=== PATIENT | male | born 1995 | race Caucasian/White ===

== ENCOUNTER 2022-04-14 18:43 | Inpatient (IN) | payer MEDICAID, SELFPAY ==
[2022-04-14 19:36] VITALS: BMI 26.5
[2022-04-14 19:47] VITALS: BMI 25.8
[2022-04-14 20:26] VITALS: BP 140/76; PULSE 86; RESP 18; TEMP 37.1; O2SAT 93
[2022-04-14 21:29] VITALS: BP 136/74; PULSE 84; RESP 18; TEMP 37; O2SAT 92
[2022-04-14] MEDS: hyDROXYzine 25 mg Capsule 50 MG PO (21:51)
[2022-04-14] MEDS: nicotine 4 mg lozenge MUCOUS MEM (21:52)
--- NOTE | 2022-04-15 09:58 | PC.NURSE ---
Pt up for meal then returned to bed. Alert, appears oriented. Rated anxiety 1-2; depression 3-4. Denied pain, anger, suicidal/homicidal thoughts and hallucinations. Reported his sleep and appetite were good. Verbalized no goal for today.
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
[2022-04-15 14:00] VITALS: BP 130/74; PULSE 86; RESP 18; TEMP 36.6; O2SAT 95
[2022-04-15] MEDS: nicotine 4 mg lozenge MUCOUS MEM ×2 (18:21→22:02)
[2022-04-15] MEDS: fluoxetine 20 mg Capsule PO (20:35)
[2022-04-15] MEDS: ziprasidone hcl 40 mg Capsule PO (20:36)
[2022-04-15 22:00] VITALS: BP 107/74; PULSE 100; RESP 17; TEMP 36.6; O2SAT 97
[2022-04-16] MEDS: hyDROXYzine 25 mg Capsule 50 MG PO ×2 (02:29→21:22)
[2022-04-16] MEDS: nicotine 4 mg lozenge MUCOUS MEM (09:23)
[2022-04-16] MEDS: fluoxetine 20 mg Capsule PO (09:23)
--- NOTE | 2022-04-16 10:31 | W.PM.NPUPNS ---
Subjective NPU Subjective: Patient presented today reporting that initiating of medications has been helpful. He reports however that the Prozac tends to make him tired and we discussed the risks, benefits and alternatives of switching it to bedtime dosing and he understood and agreed to proceed as is documented in this note. We discussed that that would start tomorrow. Otherwise he reports he is glad that he came and feels this is the best route to him getting sober and back on track from his mental health standpoint. Mental Status Exam MSE Comments: This is a well-nourished well-developed white male in scrubs with adequate grooming and limited eye contact. Except for resolving mild psychomotor agitation. Cooperative with exam in mild distress. Speech was slightly increased rate and normal volume. Mood described as a little better, affect is congruent. Thought process, organized. Thought content: patient denies suicidal or homicidal ideation, reports paranoia and guardedness as a possible grandiosity noted and denies any auditory or visual hallucinations. Attention and concentration are intact and memory appeared mostly reliable but none were formally tested. He is alert and oriented times three. Insight and judgment are limited, but improving. Impulse control is impaired. Vitals/I&O/Wt Last Vital Signs Temp 97.9 F 04/15/22 22:00 Pulse 100 04/15/22 22:00 Resp 17 04/15/22 22:00 BP 107/74 04/15/22 22:00 Pulse Ox 97 04/15/22 22:00 O2 Del Method 04/15/22 22:00 Weight last 48 hrs Weight 81.42 kg Weight 81.647 kg Weight 83.915 kg A&P Assessment and plan (1) Bipolar I disorder with mixed features: (2) Cannabis use disorder: Plan This is a 27 year old man with a history of bipolar disorder, marijuana and other illicit drug use and genetic loading for mental health and addiction issues who presents reporting some success on previous medications and an openness to restart those medications. 1. Continue current medications. Started Prozac 20 mg poq daily to bedtime. Started Geodon 40 mg poq pm. 2. Encourage individual, group and milieu therapy 3. Continue q-15 minute check for safety 4. Recommend sober living treatment at the highest level of care to which the patient is willing to commit. Involuntary Hold Information 96 Hour Hold: 96 Hour Involuntary Admission: Yes 96 Hour Hold Ending Date: 04/20/23 96 Hour Hold Ending Time: 18:20 Attestations NPU Medical Necessity Statement*: Inpatient hospitalization is medically necessary and the clinically appropriate intervention at this time. We will monitor medications and make changes as indicated. Likely length of stay is 2-4 days. Coding Level of Care Code Acute Code for Chg Fwd Diagnoses Bipolar I disorder with mixed features F31.9 Cannabis use disorder F12.90
[2022-04-16 14:00] VITALS: BP 104/64; PULSE 65; RESP 18; TEMP 36.6; O2SAT 98
[2022-04-16] MEDS: ziprasidone hcl 40 mg Capsule PO (17:13)
--- NOTE | 2022-04-16 17:17 | PC.NURSE ---
Pt is concerned about taking his Geodon medication to early in the evening, wants to speak to the doctor about medication scheduling times.
[2022-04-16 20:17] VITALS: RESP 16
[2022-04-16] MEDS: OLANZapine 5 mg ODT PO (21:22)
--- NOTE | 2022-04-17 07:40 | PC.NURSE ---
pt came to nurses station stating he did not want to take geodon any more because he is not responsible enough to take any medication two time a day. I offered to give medication now he again refused. pt stated he did not want to be awaken before 9 or 10 or he would get get angry. He stated he wanted his prozac at night. pt then turned an went to his room.
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
--- NOTE | 2022-04-17 12:59 | P.NPUPN_ITS ---
Subjective NPU Subjective: Patient presented today fairly focused on his medications. He was mostly all over the place for saying he was not to take it and then he was going to take it. Talking about the side effects that always causes him and things of that nature. He then got 2 but was likely to crux of his position and that was that he wants to work and he has a belief that people on psychiatric medications in up in group homes and do not work. We discussed that medications are often the thing that allow people with psychiatric illness to be effective and he worked environment along with follow-up and therapy. He did agree to continue our plan of Prozac at night with Geodon only at night until he adjusts to the dose. Mental Status Exam MSE Comments: This is a well-nourished well-developed white male in scrubs with adequate grooming and limited eye contact. Except for resolving mild psychomotor agitation. Cooperative with exam in mild distress. Speech was slightly increased rate and normal volume. Mood described as a little better, affect is congruent. Thought process, organized. Thought content: patient denies suicidal or homicidal ideation, reports paranoia and guardedness as a possible grandiosity noted and denies any auditory or visual hallucinations. Attention and concentration are intact and memory appeared mostly reliable but none were formally tested. He is alert and oriented times three. Insight and judgment are limited. Impulse control is impaired. Vitals/I&O/Wt Last Vital Signs Temp 97.8 F 04/16/22 14:00 Pulse 65 04/16/22 14:00 Resp 16 04/16/22 20:17 BP 104/64 04/16/22 14:00 Pulse Ox 98 04/16/22 14:00 O2 Del Method 04/15/22 22:00 Weight last 48 hrs Weight 81.42 kg A&P Assessment and plan (1) Bipolar I disorder with mixed features: (2) Cannabis use disorder: Plan This is a 27 year old man with a history of bipolar disorder, marijuana and other illicit drug use and genetic loading for mental health and addiction issues who presents reporting some success on previous medications and an openness to restart those medications. 1. Continue current medications. Started Prozac 20 mg poq daily and switched to bedtime. Started Geodon 40 mg poq pm. 2. Encourage individual, group and milieu therapy 3. Continue q-15 minute check for safety 4. Recommend sober living treatment at the highest level of care to which the patient is willing to commit. Involuntary Hold Information 96 Hour Hold: 96 Hour Involuntary Admission: Yes 96 Hour Hold Ending Date: 04/20/23 96 Hour Hold Ending Time: 18:20 Attestations NPU Medical Necessity Statement*: Inpatient hospitalization is medically necessary and the clinically appropriate intervention at this time. We will monitor medications and make changes as indicated. Likely length of stay is 2-4 days. Clear mulugeta but may need longer stay/21-day-hold. Coding Level of Care Code Acute Code for [facility] Fwd Diagnoses Bipolar I disorder with mixed features F31.9 Cannabis use disorder F12.90
[2022-04-17 14:00] VITALS: BP 129/82; PULSE 76; RESP 18; TEMP 36.5; O2SAT 98
[2022-04-17 20:22] VITALS: BP 134/98; PULSE 76; RESP 16; TEMP 37.2; O2SAT 99
[2022-04-17] MEDS: fluoxetine 20 mg Capsule PO (20:40)
[2022-04-17] MEDS: ziprasidone hcl 40 mg Capsule PO (20:40)
[2022-04-17] MEDS: hyDROXYzine 25 mg Capsule 50 MG PO (23:35)
[2022-04-17] MEDS: haloperidol 5 mg Tablet PO (23:35)
--- NOTE | 2022-04-17 23:35 | PC.NURSE ---
Patient came to nurse's station demanding an IM because he needed to sleep. Explained to patient that IM's were not for sleep and for aggressive behavior. Patient stated I get IM's everywhere I go if I ask. What's your fucking problem? Offered prn for anxiety. Patient stated I don't want to take medicine that way, I want a shot. Again educated patient on medications that were available to him. Patient continued to become more verbally aggressive and used profanity when speaking to staff. Stated You just don't get it. I want an injection so I can sleep you stupid bitch. At that time patient was informed that his behavior was inappropriate and he was not to talk to staff like he was. Patient postured at window of nurse's station and continued to be loud. At that time a PRN Haldol po and vistaril po were offered. Patient stated Well if that's all I can get then give it to me. Patient did take medication and stomped down ruelas talking loudly to himself.
--- NOTE | 2022-04-18 06:19 | PC.NURSE ---
Patient has rested quietly in bed since receiving PRN's earlier in shift. No further behaviors.
[2022-04-18] MEDS: nicotine 4 mg lozenge MUCOUS MEM (12:30)
--- NOTE | 2022-04-18 13:03 | W.PM.NPUPNS ---
Subjective NPU Subjective: Patient presented today reporting that he is feeling okay. He continues to have decisions made on faulty premises. He is going to a sober living treatment facility after discharge which is already been arranged. He knows that a 30-day program and now is trying to get there quickly so that he can quickly get back to work. So he is focused on how possible it is to be discharged on . We discussed the importance of him actually being well not just moving to the next stage and ended up not succeeding and coming right back to this stage. He seemed to understand that and we discussed the risks, benefits and alternatives of increasing his Geodon which he agreed to consider. Mental Status Exam MSE Comments: This is a well-nourished well-developed white male in scrubs with adequate grooming and limited eye contact. Except for resolving mild psychomotor agitation. Cooperative with exam in mild distress. Speech was slightly increased rate and normal volume. Mood described as a little better, affect is congruent. Thought process, organized. Thought content: patient denies suicidal or homicidal ideation, reports paranoia and guardedness as a possible grandiosity noted and denies any auditory or visual hallucinations. Attention and concentration are intact and memory appeared mostly reliable but none were formally tested. He is alert and oriented times three. Insight and judgment are limited. Impulse control is impaired. Vitals/I&O/Wt Last Vital Signs Temp 99.0 F 04/17/22 20:22 Pulse 76 04/17/22 20:22 Resp 16 04/17/22 20:22 BP 134/98 04/17/22 20:22 Pulse Ox 99 04/17/22 20:22 O2 Del Method 04/15/22 22:00 A&P Assessment and plan (1) Bipolar I disorder with mixed features: (2) Cannabis use disorder: Plan This is a 27 year old man with a history of bipolar disorder, marijuana and other illicit drug use and genetic loading for mental health and addiction issues who presents reporting some success on previous medications and an openness to restart those medications. 1. Continue current medications. Started Prozac 20 mg poq daily and switched to bedtime. Started Geodon 40 mg poq pm. He agreed to switch it to 60 mg tomorrow. 2. Encourage individual, group and milieu therapy 3. Continue q-15 minute check for safety 4. Recommend sober living treatment at the highest level of care to which the patient is willing to commit. Involuntary Hold Information 96 Hour Hold: 96 Hour Involuntary Admission: Yes 96 Hour Hold Ending Date: 04/20/23 96 Hour Hold Ending Time: 18:20 Attestations NPU Medical Necessity Statement*: Inpatient hospitalization is medically necessary and the clinically appropriate intervention at this time. We will monitor medications and make changes as indicated. Likely length of stay is 2-4 days. Clear mulugeta but may need longer stay/21-day-hold. Coding Level of Care Code Acute Code for [facility] Fwd Diagnoses Bipolar I disorder with mixed features F31.9 Cannabis use disorder F12.90
[2022-04-18 14:00] VITALS: BP 105/73; PULSE 85; RESP 18; TEMP 36.6; O2SAT 98
[2022-04-18 19:21] VITALS: BP 132/71; PULSE 79; RESP 18; TEMP 37; O2SAT 98
[2022-04-18] MEDS: ziprasidone hcl 40 mg Capsule PO (20:46)
[2022-04-18] MEDS: hyDROXYzine 25 mg Capsule 50 MG PO (20:46)
[2022-04-18] MEDS: fluoxetine 20 mg Capsule PO (20:46)
[2022-04-19] MEDS: nicotine 4 mg lozenge MUCOUS MEM (01:55)
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
--- NOTE | 2022-04-19 11:44 | W.PM.NPUPNS ---
Subjective NPU Subjective: Patient presented today with a quite different attitude about he has had moments of irritability. He was expressing paranoia about the fact that he used the N word 2 weeks ago and now have black doctor what are the chances. He was convinced that the reason why he is going to be kept longer is because he made racist comments and now this data analyst report writer is going to hold it against him. He was angry expressing things about the medications that he denied for the last couple days. So it is unclear what the situation actually is. Mental Status Exam MSE Comments: This is a well-nourished well-developed white male in scrubs with adequate grooming and limited eye contact. Except for resolving mild psychomotor agitation. Cooperative with exam in mild distress. Speech was slightly increased rate and normal volume. Mood described as horrible, affect is congruent. Thought process, organized. Thought content: patient made multiple comments about killing himself and trying to get a hold of his relatives gun so he can just end his life, but he did not report any homicidal ideation, reports paranoia and guardedness and grandiosity noted and denies any auditory or visual hallucinations. Attention and concentration are intact and memory appeared mostly reliable but none were formally tested. He is alert and oriented times three. Insight and judgment are limited. Impulse control is impaired. Vitals/I&O/Wt Last Vital Signs Temp 98.6 F 04/18/22 19:21 Pulse 79 04/18/22 19:21 Resp 18 04/18/22 19:21 BP 132/71 04/18/22 19:21 Pulse Ox 98 04/18/22 19:21 O2 Del Method 04/18/22 19:21 04/18/22 04/18/22 04/19/22 14:59 22:59 06:59 Intake Total 900 / 900 Balance 900 / 900 A&P Assessment and plan (1) Bipolar I disorder with mixed features: (2) Cannabis use disorder: Plan This is a 27 year old man with a history of bipolar disorder, marijuana and other illicit drug use and genetic loading for mental health and addiction issues who presents reporting some success on previous medications and an openness to restart those medications. 1. Continue current medications. Started Prozac 20 mg poq daily and switched to bedtime. Started Geodon 40 mg poq pm and will increase to 60 mg today. 2. Encourage individual, group and milieu therapy 3. Continue q-15 minute check for safety 4. Recommend sober living treatment at the highest level of care to which the patient is willing to commit. Involuntary Hold Information 96 Hour Hold: 96 Hour Involuntary Admission: Yes 96 Hour Hold Ending Date: 04/20/23 96 Hour Hold Ending Time: 18:20 Attestations NPU Medical Necessity Statement*: Inpatient hospitalization is medically necessary and the clinically appropriate intervention at this time. We will monitor medications and make changes as indicated. Likely length of stay is 7-10 days. Clear mulugeta and will need longer stay/21-day-hold. Coding Level of Care Code Acute Code for g Fwd Diagnoses Bipolar I disorder with mixed features F31.9 Cannabis use disorder F12.90
[2022-04-19] MEDS: haloperidol 5 mg Tablet PO (12:00)
[2022-04-19] MEDS: OLANZapine 5 mg ODT PO (12:02)
--- NOTE | 2022-04-19 12:11 | PC.NURSE ---
PRN Technical Administrative Assistant Patient approached the doctor and this RN in the hallway and began yelling, you aren't helping me at all! These medications aren't working! Patient also requested a different doctor yelling, I hate rohit louie! What are the chances I get a black doctor? I rohit hate this place. Can I request a different fucking doctor? He was offered medication by this RN and agreed to take haldol 5 mg PO and it was administered. However, he continues to pace the hallway and say, what are the chances I get a black fucking doctor? He knows I said the n-word and that's why he's keeping me!
[2022-04-19] MEDS: hyDROXYzine 25 mg Capsule 50 MG PO (12:33)
[2022-04-19 14:00] VITALS: RESP 17
[2022-04-19] MEDS: ziprasidone hcl 60 mg Capsule PO (21:30)
[2022-04-19] MEDS: fluoxetine 10 mg Capsule PO (21:31)
[2022-04-19] MEDS: fluoxetine 20 mg Capsule PO (21:31)
[2022-04-19 22:00] VITALS: BP 127/84; PULSE 79; RESP 18; TEMP 36.9; O2SAT 95
--- NOTE | 2022-04-20 10:25 | PC.NURSE ---
Deferred pt's assessment allow pt time to sleep. Attempted to complete pt's assessment at this time but pt said he'd do it later. Told staff to leave the door cracked.
[2022-04-20] MEDS: nicotine 4 mg lozenge MUCOUS MEM (13:31)
[2022-04-20 14:00] VITALS: BP 122/79; PULSE 87; RESP 20; TEMP 36.7; O2SAT 97
[2022-04-20] MEDS: ziprasidone hcl 60 mg Capsule PO (17:38)
--- NOTE | 2022-04-20 18:10 | W.PM.NPUPNS ---
Subjective NPU Subjective: Patient presented today initially having irritability about this being essentially his possible discharge day. We discussed the fact that he is clearly not ready to discharge given his volatility and mood swings. We discussed needing to be clear that this is the best medication for him given his statements yesterday of nothing ever working and wanting to kill himself. We discussed initiating a ten 1 day hold and keeping him here until he has the stability to move on to the sober living facility that he has a bed awakening. He was agreeable. Mental Status Exam MSE Comments: This is a well-nourished well-developed white male in scrubs with adequate grooming and and improving eye contact. Except for resolving mild psychomotor agitation. Cooperative with exam in mild distress. Speech was slightly increased rate and normal volume. Mood described as a little better, affect is congruent. Thought process, organized. Thought content: patient denies suicidal or homicidal ideation, reports decreasing paranoia and guardedness and grandiosity noted and denies any auditory or visual hallucinations. Attention and concentration are intact and memory appeared mostly reliable but none were formally tested. He is alert and oriented times three. Insight and judgment are limited. Impulse control is impaired. Vitals/I&O/Wt Last Vital Signs Temp 98.1 F 04/20/22 20:52 Pulse 94 04/20/22 20:52 Resp 18 04/20/22 20:52 BP 129/81 04/20/22 20:52 Pulse Ox 96 04/20/22 20:52 O2 Del Method 04/20/22 20:52 A&P Assessment and plan (1) Bipolar I disorder with mixed features: (2) Cannabis use disorder: Plan This is a 27 year old man with a history of bipolar disorder, marijuana and other illicit drug use and genetic loading for mental health and addiction issues who presents reporting some success on previous medications and an openness to restart those medications. 1. Continue current medications. Started Prozac 20 mg poq daily and switched to bedtime. Started Geodon 40 mg poq pm and will increased to 60 mg. 2. Encourage individual, group and milieu therapy 3. Continue q-15 minute check for safety 4. Recommend sober living treatment at the highest level of care to which the patient is willing to commit. 5. With continued instability we filed a 21-day hold. Involuntary Hold Information 96 Hour Hold: 96 Hour Involuntary Admission: Yes 96 Hour Hold Ending Date: 04/20/23 96 Hour Hold Ending Time: 18:20 Attestations NPU Medical Necessity Statement*: Inpatient hospitalization is medically necessary and the clinically appropriate intervention at this time. We will monitor medications and make changes as indicated. Likely length of stay is 7-10 days. Clear mulugeta and will need longer stay/21-day-hold. Coding Level of Care Code Acute Code for [facility] Diagnoses Bipolar I disorder with mixed features F31.9 Cannabis use disorder F12.90
[2022-04-20 20:52] VITALS: BP 129/81; PULSE 94; RESP 18; TEMP 36.7; O2SAT 96
[2022-04-20] MEDS: fluoxetine 10 mg Capsule PO (21:12)
[2022-04-20] MEDS: fluoxetine 20 mg Capsule PO (21:12)
[2022-04-20] MEDS: haloperidol 5 mg Tablet PO (23:07)
[2022-04-20] MEDS: hyDROXYzine 25 mg Capsule 50 MG PO (23:07)
[2022-04-21] MEDS: nicotine 4 mg lozenge MUCOUS MEM ×2 (13:19→17:49)
--- NOTE | 2022-04-21 14:19 | PC.NURSE ---
Pt continuing to perseverate on him being placed on a 21 day hold. Pt aware and willing to attend court. Pt looking at his paperwork and made comments about what he was reading. He stated, I wasn't hearing voices. I lied so I could get to [place]. Pt also asked staff to update his allergy list to include Latuda, Invega, and Saphris. Pt reports they make his gums swell and his teeth hurt. This was done and a new allergy band provided to the patient. He'd removed his previous one. Pt instructed to keep it in place. Pt verbalized his understanding.
--- NOTE | 2022-04-21 15:11 | PC.NURSE ---
Correctional Maintenance Technician here to see pt. After the visit, the pt said he didn't want to go to court. Pt said he was only going to go so he could smoke, but since he couldn't smoke, there wasn't any reason to go. He knew how it was going to returned goods sorter.
--- NOTE | 2022-04-21 15:25 | PC.NURSE ---
patient refused vitals.
--- NOTE | 2022-04-21 15:44 | PC.NURSE ---
Pt came to nurses station saying he'd thought of a couple of other medications he was allergic to, including depakote and Sangaree. Pt said they cause him to vomit. Allergy list updated.
--- NOTE | 2022-04-21 17:17 | P.NPUPN_ITS ---
Subjective NPU Subjective: Patient presented today much worse than yesterday from the very beginning. Even though we had a long discussion about the 21-day hold and how it worked as soon as they served him on the 21-day hold paperwork he was angry and making assumptions that he was going to have to stay the whole 21 days no matter what. He vet went on a rant that lasted much of the day where and he was calling this lead technical writer a Nigger in that he has never had a black doctor and that the only reason why he is being kept is because he said the N word a couple weeks ago and somehow this lead technical writer knows that and is doing everything in his power to make things harder for him. He said all kinds of angry things that ma de no sense. We met about his hearing today and I explained how the hearing would proceed and what this lead technical writer would say on the stand and he ultimately decided not to go to the hearing. Mental Status Exam MSE Comments: This is a well-nourished well-developed white male in scrubs with adequate grooming and adequate eye contact. Except for resolving mild psychomotor agitation. Cooperative with exam in mild distress. Speech was slightly increased rate and volume. Mood described as pissed, affect is congruent. Thought process, organized. Thought content: patient made multiple comments about towards others particularly this lead technical writer as well as killing himself, reports paranoia and guardedness and grandiosity noted and denies any auditory or visual hallucinations. Attention and concentration are limited and memory appeared mostly unreliable but none were formally tested. He is alert and oriented times three. Insight and judgment are impaired. Impulse control is impaired. Vitals/I&O/Wt Last Vital Signs Temp 98.0 F 04/21/22 19:54 Pulse 83 04/21/22 19:54 Resp 17 04/21/22 19:54 BP 118/83 04/21/22 19:54 Pulse Ox 95 04/21/22 19:54 O2 Del Method 04/21/22 19:54 A&P Assessment and plan (1) Bipolar I disorder with mixed features: (2) Cannabis use disorder: Plan This is a 27 year old man with a history of bipolar disorder, marijuana and other illicit drug use and genetic loading for mental health and addiction issues who presents reporting some success on previous medications and an openness to restart those medications. 1. Continue current medications. Started Prozac 20 mg poq daily and switched to bedtime. Started Geodon 40 mg poq pm and increased to 60 mg. He has been refusing any medication adjustments otherwise. 2. Encourage individual, group and milieu therapy 3. Continue q-15 minute check for safety 4. Recommend sober living treatment at the highest level of care to which the patient is willing to commit. 5. With continued instability we filed a 21-day hold. Involuntary Hold Information 96 Hour Hold: 96 Hour Involuntary Admission: Yes 96 Hour Hold Ending Date: 04/20/23 96 Hour Hold Ending Time: 18:20 Attestations NPU Medical Necessity Statement*: Inpatient hospitalization is medically necessary and the clinically appropriate intervention at this time. We will monitor medications and make changes as indicated. Likely length of stay is 7-10 days. Clear mulugeta and will need longer stay/21-day-hold. Coding Level of Care Code Acute Code for [facility] Fwd Diagnoses Bipolar I disorder with mixed features F31.9 Cannabis use disorder F12.90
[2022-04-21] MEDS: ziprasidone hcl 60 mg Capsule PO (17:31)
--- NOTE | 2022-04-21 17:44 | PC.NURSE ---
Addendum entered by Claire Cifuentes LPN 04/21/22 17:51: Notified [employer] of the activity. Original Note: Pt pulled the box off of the fire alarm, alarm sounded and he placed the box back on. This nurse responded to the alarm and the pt stated I'm sorry, I didn't mean too.
--- NOTE | 2022-04-21 18:59 | PC.NURSE ---
Pt has been screaming Nigger all day at the window. Pt has been talking nasty and cussing at all the staff and chanting Catherine Littlejohn !! Pt has been encouraged to please stop talking in that matter.
--- NOTE | 2022-04-21 19:00 | PC.NURSE ---
Pt came to station saying he was feeling bad; having increased anxiety, doesn't know what's wrong. Pt's vital signs are good 123/78, 97.4, 87, 16, 97% sat. Pt then started making disparaging remarks about blacks and how low their IQs were, etc. Pt redirected but he continued to spew bigoted comments. Pt said he wanted his meds. Pt informed it was too early for his bedtime meds. Pt asked to leave the nurses station. He did, but kept coming back with further comments. Pt again encouraged to journal. Staff had provided him a book. He now says he doesn't like to write. Pt reminded he needed to help himself if he expected to improve. Pt wasn't receptive.
[2022-04-21 19:54] VITALS: BP 118/83; PULSE 83; RESP 17; TEMP 36.7; O2SAT 95
[2022-04-21] MEDS: fluoxetine 10 mg Capsule PO (20:20)
[2022-04-21] MEDS: fluoxetine 20 mg Capsule PO (20:20)
[2022-04-21] MEDS: hyDROXYzine 25 mg Capsule 50 MG PO (20:20)
--- NOTE | 2022-04-22 08:23 | P.NPUPN_ITS ---
Subjective NPU Subjective: Patient presented today reporting that he does understand why he has not been discharged because other patients which he named specifically having discharged and he feels he doing better than them. We discussed the 21- day day process again which he now understands but he continues to be resistant to medication changes reporting that he is doing well. We had a discussion about his inability to manage his aggressive tendencies. And that we expect him to have the ability to do that prior to discharge. He initially gave multiple excuses and reasons as to why these are just aspect of his personality and not mulugeta. We discussed needing to make improvements there before we would designat e a safe discharge. Mental Status Exam MSE Comments: This is a well-nourished well-developed white male in scrubs with adequate grooming and adequate eye contact. Except for resolving mild psychomotor agitation. Cooperative with exam in mild distress. Speech was slightly increased rate and volume. Mood described as frustrated, affect is congruent. Thought process, organized. Thought content: patient denies any suicidal or homicidal ideation,, reports paranoia, and guardedness and grandiosity noted and denies any auditory or visual hallucinations. Attention and concentration are limited and memory appeared mostly unreliable but none were formally tested. He is alert and oriented times three. Insight and judgment are impaired. Impulse control is impaired. Vitals/I&O/Wt Last Vital Signs Temp 98.0 F 04/21/22 19:54 Pulse 83 04/21/22 19:54 Resp 17 04/21/22 19:54 BP 118/83 04/21/22 19:54 Pulse Ox 95 04/21/22 19:54 O2 Del Method 04/21/22 19:54 04/21/22 04/22/22 04/22/22 22:59 06:59 14:59 Intake Total 900 / 900 Balance 900 / 900 A&P Assessment and plan (1) Bipolar I disorder with mixed features: (2) Cannabis use disorder: Plan This is a 27 year old man with a history of bipolar disorder, marijuana and other illicit drug use and genetic loading for mental health and addiction issues who presents reporting some success on previous medications and an openness to restart those medications. 1. Continue current medications. Started Prozac 20 mg poq daily and switched to bedtime. Started Geodon 40 mg poq pm and increased to 60 mg. He has been refusing any medication adjustments otherwise. 2. Encourage individual, group and milieu therapy 3. Continue q-15 minute check for safety 4. Recommend sober living treatment at the highest level of care to which the patient is willing to commit. 5. With continued instability we filed a 21-day hold. Involuntary Hold Information 96 Hour Hold: 96 Hour Involuntary Admission: Yes 96 Hour Hold Ending Date: 04/20/23 96 Hour Hold Ending Time: 18:20 Attestations NPU Medical Necessity Statement*: Inpatient hospitalization is medically necessary and the clinically appropriate intervention at this time. We will monitor medic ations and make changes as indicated. Likely length of stay is 7-10 days. Coding Level of Care Code Acute Code for [facility] Fwd Diagnoses Bipolar I disorder with mixed features F31.9 Cannabis use disorder F12.90
[2022-04-22] MEDS: nicotine 4 mg lozenge MUCOUS MEM ×5 (11:27→20:01)
[2022-04-22 14:00] VITALS: BP 135/82; PULSE 83; RESP 18; TEMP 36.7; O2SAT 97
[2022-04-22] MEDS: ziprasidone hcl 60 mg Capsule PO (17:46)
[2022-04-22 19:50] VITALS: BP 137/84; PULSE 98; RESP 16; TEMP 36.9; O2SAT 97
[2022-04-22] MEDS: fluoxetine 20 mg Capsule PO (21:06)
[2022-04-22] MEDS: fluoxetine 10 mg Capsule PO (21:06)
[2022-04-22] MEDS: hyDROXYzine 25 mg Capsule 50 MG PO (21:48)
[2022-04-23] MEDS: nicotine 4 mg lozenge MUCOUS MEM ×3 (11:05→20:22)
[2022-04-23 14:00] VITALS: BP 127/78; PULSE 72; RESP 18; TEMP 36.7; O2SAT 96
--- NOTE | 2022-04-23 16:29 | P.NPUPN_ITS ---
Subjective NPU Subjective: Patient presented today continuing to have the highs and lows that have marked his inpatient stay. He began today reporting that he feels like his being hospitalized is related to being black history month and that this telegraphic typewriter repairer is not willing to discharge him because he is white. He had no explanation for why that makes sense when all of the other patients that have been discharged since he has been here are white. He has gravitated to the discussion we had about him being able to manage his rants and explosions being necessary for him to discharge but being unable to do so and being unwilling to take an increased dose. We discussed recommended alternatives of increasing the Geodon to 80 mg but he at this point has been unwilling to make the change. Mental Status Exam MSE Comments: This is a well-nourished well-developed white male in scrubs with adequate grooming and adequate eye contact. Except for resolving mild psychomotor agitation. Cooperative with exam in mild to moderate distress in a very mercurial fashion. Speech was slightly increased rate and volume. Mood described as frustrated, affect is congruent. Thought process, organized. Thought content: patient denies any suicidal or homicidal ideation,, reports paranoia, and guardedness and grandiosity noted and denies any auditory or visual hallucinations. Attention and concentration are limited and memory appeared mostly unreliable but none were formally tested. He is alert and oriented times three. Insight and judgment are impaired. Impulse control is impaired. Vitals/I&O/Wt Last Vital Signs Temp 98.0 F 04/23/22 14:00 Pulse 72 04/23/22 14:00 Resp 18 04/23/22 14:00 BP 127/78 04/23/22 14:00 Pulse Ox 96 04/23/22 14:00 O2 Del Method 04/21/22 19:54 Weight last 48 hrs Weight 82.917 kg A&P Assessment and plan (1) Bipolar I disorder with mixed features: (2) Cannabis use disorder: Plan This is a 27 year old man with a history of bipolar disorder, marijuana and other illicit drug use and genetic loading for mental health and addiction issues who presents reporting some success on previous medications and an openness to restart those medications. 1. Continue current medications. Started Prozac 20 mg poq daily and switched to bedtime. Started Geodon 40 mg poq pm and increased to 60 mg. He has been refusing any medication adjustments otherwise. Recommend increasing Geodon to 80 mg but awaiting his willingness to take. We discussed the possibility of a injection for p.o. refusal starting tomorrow. 2. Encourage individual, group and milieu therapy 3. Continue q-15 minute check for safety 4. Recommend sober living treatment at the highest level of care to which the patient is willing to commit. 5. Patient was placed on 21-day hold 04/21/2022. Involuntary Hold Information 96 Hour Hold: 96 Hour Involuntary Admission: Yes 96 Hour Hold Ending Date: 04/20/23 96 Hour Hold Ending Time: 18:20 Attestations NPU Medical Necessity Statement*: Inpatient hospitalization is medically necessary and the clinically appropriate intervention at this time. We will monitor medications and make changes as indicated. Likely length of stay is 7-10 days. Coding Level of Care Code Acute Code for [facility] Fwd Diagnoses Bipolar I disorder with mixed features F31.9 Cannabis use disorder F12.90
[2022-04-23] MEDS: ziprasidone hcl 60 mg Capsule PO (16:43)
[2022-04-23 19:58] VITALS: BP 152/75; PULSE 74; RESP 16; TEMP 37; O2SAT 98
[2022-04-23] MEDS: fluoxetine 10 mg Capsule PO (20:26)
[2022-04-23] MEDS: fluoxetine 20 mg Capsule PO (20:26)
[2022-04-24] MEDS: nicotine 4 mg lozenge MUCOUS MEM ×2 (09:57→14:01)
[2022-04-24 14:00] VITALS: BP 117/75; PULSE 84; RESP 17; O2SAT 98
--- NOTE | 2022-04-24 18:13 | W.PM.NPUPNS ---
Subjective NPU Subjective: Patient presents today continuing to be quite material in his interactions. The moments of calmness and rational behavior and moments of anger and frustration with the smallest items. He continued to be resistant to the idea of medication change. He continues to report that his functioning is optimal and that any changes will lead to dramatic impact in his sleeping which will lead to dramatic diminishing of his ability to get out of here to get a job which is a significant focus of his. We continue to talk about his going to sober living at discharge. Mental Status Exam MSE Comments: This is a well-nourished well-developed white male in scrubs with adequate grooming and adequate eye contact. Except for intermittent mild psychomotor agitation. Cooperative with exam in mild to moderate distress in a very mercurial fashion. Speech was slightly increased rate and volume. Mood described as feeling good, affect is irritable congruent. Thought process, organized. Thought content: patient denies any suicidal or homicidal ideation,, reports diminishing paranoia, and guardedness and grandiosity noted and denies any auditory or visual hallucinations. Attention and concentration are limited and memory appeared mostly unreliable but none were formally tested. He is alert and oriented times three. Insight and judgment are impaired. Impulse control is impaired. Vitals/I&O/Wt Last Vital Signs Temp 98.1 F 04/24/22 20:51 Pulse 99 04/24/22 20:51 Resp 17 04/24/22 20:51 BP 135/86 04/24/22 20:51 Pulse Ox 94 04/24/22 20:51 O2 Del Method 04/21/22 19:54 A&P Assessment and plan (1) Bipolar I disorder with mixed features: (2) Cannabis use disorder: Plan This is a 27 year old man with a history of bipolar disorder, marijuana and other illicit drug use and genetic loading for mental health and addiction issues who presents reporting some success on previous medications and an openness to restart those medications. 1. Continue current medications. Started Prozac 20 mg poq daily and switched to bedtime. Started Geodon 40 mg poq pm and increased to 60 mg. He has been refusing any medication adjustments otherwise. Recommend increasing Geodon to 80 mg but awaiting his willingness to take. We discussed the possibility of a injection for p.o. refusal starting tomorrow. 2. Encourage individual, group and milieu therapy 3. Continue q-15 minute check for safety 4. Recommend sober living treatment at the highest level of care to which the patient is willing to commit. 5. Patient was placed on 21-day hold 04/21/2022. Involuntary Hold Information 96 Hour Hold: 96 Hour Involuntary Admission: Yes 96 Hour Hold Ending Date: 04/20/23 96 Hour Hold Ending Time: 18:20 Attestations NPU Medical Necessity Statement*: Inpatient hospitalization is medically necessary and the clinically appropriate intervention at this time. We will monitor medications and make changes as indicated. Likely length of stay is 5-8 days. Coding Level of Care Code Acute Code for [facility]wd Diagnoses Bipolar I disorder with mixed features F31.9 Cannabis use disorder F12.90
--- NOTE | 2022-04-24 19:45 | PC.NURSE ---
Approached patient to do shift assessment when patient became belligerent and was yelling loudly at this health technical writer using profanity. Stated Bitch get the fuck away from me. I don't want to be bothered. What don't you get? I'm not answering any questions you stupid bitch. Patient continued to use profanity as he walked in to the dayroom. Staff walked away. Several minutes later patient came to nurse's station and again started to be verbally aggressive using profanity. Stated it was staffs fault that he acts like he does because you're a bunch of stupid bitches who don't know when to leave someone alone. I just found out my sister's dog and I loved that dog. Staff told him his behavior was inappropriate and not acceptable. Informed him when he could speak appropriately he was welcome to return to speak to staff. Patient stomped down ruelas to dayroom.
[2022-04-24] MEDS: fluoxetine 10 mg Capsule PO (20:30)
[2022-04-24] MEDS: ziprasidone hcl 60 mg Capsule PO (20:30)
[2022-04-24] MEDS: fluoxetine 20 mg Capsule PO (20:31)
[2022-04-24 20:51] VITALS: BP 135/86; PULSE 99; RESP 17; TEMP 36.7; O2SAT 94
--- NOTE | 2022-04-24 21:50 | PC.NURSE ---
Patient came to nurse's station smiling and asking questions about round trip flights to [place]. Stated his sister lives there and he wanted to go visit flying first class. At that time patient stated I just found out my sister's dog 2 years ago. Patient pleasant and appropriate with staff this time.
[2022-04-25] MEDS: nicotine 4 mg lozenge MUCOUS MEM ×5 (13:28→23:30)
[2022-04-25 14:00] VITALS: BP 154/85; PULSE 100; RESP 20; TEMP 36.7; O2SAT 96
--- NOTE | 2022-04-25 18:20 | P.NPUPN_ITS ---
Subjective NPU Subjective: Patient presented today reporting that he is doing fine. He actually suggested that he would consider the increase to 80 mg of the every night. We continued to discuss his mercurial nature and the fact that increasing his medication will serve as a further support for his mood swings. He agreed to consider that. Otherwise he continue to focus on getting a job and did report some concern that calling the facility he is supposed to be going to did not get an answer on the other end. Mental Status Exam MSE Comments: This is a well-nourished well-developed white male in scrubs with adequate grooming and adequate eye contact. Except for intermittent mild psychomotor agitation. Cooperative with exam in mild to moderate distress in a very mercurial fashion. Speech was slightly increased rate and volume. Mood described as I feel great, affect is intermittently congruent. Thought process, organized. Thought content: patient denies any suicidal or homicidal ideation,, reports diminishing paranoia, and guardedness and grandiosity noted and denies any auditory or visual hallucinations. Attention and concentration are limited and memory appeared mostly unreliable but none were formally tested. He is alert and oriented times three. Insight and judgment are impaired. Impulse control is impaired. Vitals/I&O/Wt Last Vital Signs Temp 98.3 F 04/25/22 21:24 Pulse 95 04/25/22 21:24 Resp 18 04/25/22 21:24 BP 125/82 04/25/22 21:24 Pulse Ox 96 04/25/22 21:24 O2 Del Method 04/21/22 19:54 A&P Assessment and plan (1) Bipolar I disorder with mixed features: (2) Cannabis use disorder: Plan This is a 27 year old man with a history of bipolar disorder, marijuana and other illicit drug use and genetic loading for mental health and addiction issues who presents reporting some success on previous medications and an openness to restart those medications. 1. Continue current medications. Started Prozac 20 mg poq daily and switched to bedtime. Started Geodon 40 mg poq pm and increased to 60 mg. He has been refusing any medication adjustments otherwise. Increase Geodon to 80 mg p.o. nightly. 2. Encourage individual, group and milieu therapy 3. Continue q-15 minute check for safety 4. Recommend sober living treatment at the highest level of care to which the patient is willing to commit. 5. Patient was placed on 21-day hold 04/21/2022. Involuntary Hold Information 96 Hour Hold: 96 Hour Involuntary Admission: Yes 96 Hour Hold Ending Date: 04/20/23 96 Hour Hold Ending Time: 18:20 Attestations NPU Medical Necessity Statement*: Inpatient hospitalization is medically necessary and the clinically appropriate intervention at this time. We will monitor medications and make changes as indicated. Likely length of stay is 3-5 days. Coding Level of Care Code Acute Code for [facility] Fwd Diagnoses Bipolar I disorder with mixed features F31.9 Cannabis use disorder F12.90
[2022-04-25 21:24] VITALS: BP 125/82; PULSE 95; RESP 18; TEMP 36.8; O2SAT 96
[2022-04-25] MEDS: ziprasidone hcl 60 mg Capsule PO (21:50)
[2022-04-25] MEDS: fluoxetine 10 mg Capsule PO (21:50)
[2022-04-25] MEDS: fluoxetine 20 mg Capsule PO (21:50)
--- NOTE | 2022-04-26 | PC.NURSE ---
Patient at nurse's station talking with staff appropriately for several hours. Patient did request something for anxiety and was worried he would not be able to sleep. Trazodone offered but patient stated he would prefer vistaril. Rated anxiety at a 8/10. Vistaril given as ordered. No outburst this shift.
[2022-04-26] MEDS: hyDROXYzine 25 mg Capsule 50 MG PO (00:22)
[2022-04-26] MEDS: nicotine 4 mg lozenge MUCOUS MEM ×3 (10:47→22:46)
[2022-04-26 14:00] VITALS: BP 108/69; PULSE 90; RESP 18; TEMP 36.6; O2SAT 96
--- NOTE | 2022-04-26 18:06 | W.PM.NPUPNS ---
Subjective NPU Subjective: Patient presented today reporting continued focus on discharge and getting towards having a functional high-paying job. We discussed reaching the sober living facility and the [facility] that they are holding the bed for him. This made him very happy. He endorsed that he had received increase in Geodon and reportedly felt some tingling this morning but was advised that the increase had occurred as he had not authorized it yet. He agreed to taking the medication at the increased dose tonight and that we can discuss the possibilities and responses in the morning. Mental Status Exam MSE Comments: This is a well-nourished well-developed white male in scrubs with adequate grooming and adequate eye contact. Except for intermittent mild psychomotor agitation. Cooperative with exam in mild to moderate distress in a very mercurial fashion. Speech was slightly increased rate and volume. Mood described as I feel great, affect is intermittently congruent. Thought process, organized. Thought content: patient denies any suicidal or homicidal ideation,, reports diminishing paranoia, and guardedness and grandiosity noted and denies any auditory or visual hallucinations. Attention and concentration are limited and memory appeared mostly unreliable but none were formally tested. He is alert and oriented times three. Insight and judgment are improving. Impulse control is limited. Vitals/I&O/Wt Last Vital Signs Temp 98.0 F 04/26/22 21:29 Pulse 87 04/26/22 21:29 Resp 16 04/26/22 21:29 BP 126/86 04/26/22 21:29 Pulse Ox 97 04/26/22 21:29 O2 Del Method 04/26/22 21:29 04/26/22 14:59 Intake Total Balance A&P Assessment and plan (1) Bipolar I disorder with mixed features: (2) Cannabis use disorder: Plan This is a 27 year old man with a history of bipolar disorder, marijuana and other illicit drug use and genetic loading for mental health and addiction issues who presents reporting some success on previous medications and an openness to restart those medications. 1. Continue current medications. Started Prozac 20 mg poq daily and switched to bedtime. Started Geodon 40 mg poq pm and increased to 60 mg. He has been refusing any medication adjustments otherwise. Increase Geodon to 80 mg p.o. nightly. 2. Encourage individual, group and milieu therapy 3. Continue q-15 minute check for safety 4. Recommend sober living treatment at the highest level of care to which the patient is willing to commit. 5. Patient was placed on 21-day hold 04/21/2022. Involuntary Hold Information 96 Hour Hold: 96 Hour Involuntary Admission: Yes 96 Hour Hold Ending Date: 04/20/23 96 Hour Hold Ending Time: 18:20 Attestations NPU Medical Necessity Statement*: Inpatient hospitalization is medically necessary and the clinically appropriate intervention at this time. We will monitor medications and make changes as indicated. Likely length of stay is 2-4 days. Coding Level of Care Code Acute Code for [facility] Fwd Diagnoses Bipolar I disorder with mixed features F31.9 Cannabis use disorder F12.90
[2022-04-26 21:29] VITALS: BP 126/86; PULSE 87; RESP 16; TEMP 36.7; O2SAT 97
[2022-04-26] MEDS: fluoxetine 20 mg Capsule PO (22:28)
[2022-04-26] MEDS: fluoxetine 10 mg Capsule PO (22:28)
[2022-04-26] MEDS: ziprasidone hcl 40 mg Capsule 80 MG PO (22:45)
[2022-04-27 14:00] VITALS: BP 118/74; PULSE 94; RESP 17; TEMP 37.1; O2SAT 96
[2022-04-27] MEDS: nicotine 4 mg lozenge MUCOUS MEM ×3 (14:04→22:00)
--- NOTE | 2022-04-27 18:21 | W.PM.NPUPNS ---
Subjective NPU Subjective: Patient presented today reporting that he is feeling okay. He is somewhat hesitant about the Geodon but says he will hold with the current dose for now. We also discussed about his concerns for erectile dysfunction with antidepressants but agreed to increase his Prozac to 40 mg after a discussion of the risks, benefits and alternatives he understood and agreed to proceed as is documented in this note. We continued to discuss the possibility of discharge over the next few days. Mental Status Exam MSE Comments: This is a well-nourished well-developed white male in scrubs with adequate grooming and adequate eye contact. No abnormal movements. Cooperative with exam in mild distress. Speech was slightly increased rate and volume. Mood described as good, affect is mostly congruent. Thought process, organized. Thought content: patient denies any suicidal or homicidal ideation,, reports diminishing paranoia, and much less guardedness and grandiosity noted and denies any auditory or visual hallucinations. Attention and concentration are improving and memory appeared mostly reliable but none were formally tested. He is alert and oriented times three. Insight and judgment are improving. Impulse control is limited, but improving. Vitals/I&O/Wt Last Vital Signs Temp 98.0 F 04/27/22 21:33 Pulse 94 04/27/22 21:33 Resp 18 04/27/22 21:33 BP 132/84 04/27/22 21:33 Pulse Ox 96 04/27/22 21:33 O2 Del Method 04/27/22 21:33 04/27/22 14:59 Intake Total 900 / 900 Balance 900 / 900 A&P Assessment and plan (1) Bipolar I disorder with mixed features: (2) Cannabis use disorder: Plan This is a 27 year old man with a history of bipolar disorder, marijuana and other illicit drug use and genetic loading for mental health and addiction issues who presents reporting some success on previous medications and an openness to restart those medications. 1. Continue current medications. Started Prozac 20 mg poq daily and switched to bedtime. Increase to 40 mg. Started Geodon 40 mg poq pm and increased to 60 mg. Increased Geodon to 80 mg p.o. nightly. 2. Encourage individual, group and milieu therapy 3. Continue q-15 minute check for safety 4. Recommend sober living treatment at the highest level of care to which the patient is willing to commit. 5. Patient was placed on 21-day hold Julio, 04/21/2022. Involuntary Hold Information 96 Hour Hold: 96 Hour Involuntary Admission: Yes 96 Hour Hold Ending Date: 04/20/23 96 Hour Hold Ending Time: 18:20 Attestations NPU Medical Necessity Statement*: Inpatient hospitalization is medically necessary and the clinically appropriate intervention at this time. We will monitor medications and make changes as indicated. Likely length of stay is 2-4 days. Coding Level of Care Code Acute Code for [facility] Fwd Diagnoses Bipolar I disorder with mixed features F31.9 Cannabis use disorder F12.90
[2022-04-27] MEDS: fluoxetine 20 mg Capsule 40 MG PO (21:30)
[2022-04-27] MEDS: ziprasidone hcl 40 mg Capsule 80 MG PO (21:30)
[2022-04-27 21:33] VITALS: BP 132/84; PULSE 94; RESP 18; TEMP 36.7; O2SAT 96
[2022-04-28] MEDS: nicotine 4 mg lozenge MUCOUS MEM ×6 (00:09→22:00)
[2022-04-28 09:53] LABS: Hepatitis A Antibody IgM Non-Reactive (Nonreactive); Hepatitis B Core AB, Total Non-Reactive (Nonreactive); Hepatitis B Surface Antigen Non-Reactive (Nonreactive); Hepatitis C Virus Antibody Non-Reactive (Nonreactive)
[2022-04-28 09:54] LABS: Hepatitis B Surface AB < 3.5 (11.5-1000)
[2022-04-28 09:56] LABS: HIV 1 & 2 Antibody Non-Reactive (Non-Reactiv); HIV 1 & 2 Antigen Non-Reactive (Non-Reactiv)
[2022-04-28 14:00] VITALS: BP 117/78; PULSE 76; RESP 20; TEMP 36.7; O2SAT 97
--- NOTE | 2022-04-28 18:43 | W.PM.NPUPNS ---
Subjective NPU Subjective: Patient presented today reporting that things were going okay. He had a couple moments of loose control of his emotions but he continues to get better daily. We continued to talk about the fact that a small dose in the morning of the Geodon might be helpful. But that as he moves forward and gets adjusted to the medication those changes can be made in a slow methodical manner. We discussed the plan for discharge in the morning to the sober living facility including the risks, benefits and alternatives and he understood and agreed to proceed as is documented in this note. Mental Status Exam MSE Comments: This is a well-nourished well-developed white male in scrubs with adequate grooming and adequate eye contact. No abnormal movements. Cooperative with exam in mild distress. Speech was slightly increased rate and volume. Mood described as good, affect is mostly congruent. Thought process, organized. Thought content: patient denies any suicidal or homicidal ideation,, reports diminishing paranoia, and much less guardedness and grandiosity noted and denies any auditory or visual hallucinations. Attention and concentration are improving and memory appeared mostly reliable but none were formally tested. He is alert and oriented times three. Insight and judgment are improving. Impulse control is limited, but improving. Vitals/I&O/Wt Last Vital Signs Temp 97.9 F 04/28/22 20:28 Pulse 109 H 04/28/22 20:28 Resp 17 04/28/22 20:28 BP 134/94 04/28/22 20:28 Pulse Ox 98 04/28/22 20:28 O2 Del Method 04/28/22 20:28 A&P Assessment and plan (1) Bipolar I disorder with mixed features: (2) Cannabis use disorder: Plan This is a 27 year old man with a history of bipolar disorder, marijuana and other illicit drug use and genetic loading for mental health and addiction issues who presents reporting some success on previous medications and an openness to restart those medications. 1. Continue current medications. Started Prozac 20 mg poq daily and switched to bedtime. Increase to 40 mg. Started Geodon 40 mg poq pm and increased to 60 mg. Increased Geodon to 80 mg p.o. nightly. 2. Encourage individual, group and milieu therapy 3. Continue q-15 minute check for safety 4. Recommend sober living treatment at the highest level of care to which the patient is willing to commit. 5. Patient was placed on 21-day hold 04/21/2022. Involuntary Hold Information 96 Hour Hold: 96 Hour Involuntary Admission: Yes 96 Hour Hold Ending Date: 04/20/23 96 Hour Hold Ending Time: 18:20 Attestations NPU Medical Necessity Statement*: Inpatient hospitalization is medically necessary and the clinically appropriate intervention at this time. We will monitor medications and make changes as indicated. Likely length of stay is 1-3 days. Tentative plan for discharge tomorrow. Coding Level of Care Code Acute Code for g Fwd Diagnoses Bipolar I disorder with mixed features F31.9 Cannabis use disorder F12.90
--- NOTE | 2022-04-28 19:02 | PC.NURSE ---
IN DINING ROOM SCREAMING AT FEMALE PT BECAUSE, HE STATED, SHE KEEP TALKING ABOUT [employer] AND KEEPS FARTING. PT. CALLING FEMALE PT. DANIELA AND YANETCH AND STAFF BITCH. NURSE AND STAFF CONT TO TRY TO REDIRECT. SECURITY AND DR. LANE CALLED TO HELP DE-ESCALATE. DOCTOR WAS ABLE TO DE-ESCALATE PT. FEMALE PT WAS MOVED TO RM 129.
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
[2022-04-28] MEDS: ziprasidone hcl 40 mg Capsule 80 MG PO (20:25)
[2022-04-28] MEDS: fluoxetine 20 mg Capsule 40 MG PO (20:26)
[2022-04-28 20:28] VITALS: BP 134/94; PULSE 109; RESP 17; TEMP 36.6; O2SAT 98
[2022-04-29 06:00] VITALS: RESP 17
[2022-04-29] MEDS: nicotine 4 mg lozenge MUCOUS MEM ×2 (08:29)
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
[2022-04-29 09:37] VITALS: BP 134/94; PULSE 109; RESP 17; TEMP 36.6; O2SAT 98
== END 2022-04-29 10:10 | disposition home or self-care (01) | DRG 885 ==
PROVIDERS: Admitting Provider Psychiatry & Neurology Psychiatry; Visit Provider Psychiatry & Neurology Psychiatry
DX: F31.60 Bipolar disorder, current episode mixed, unspecified (principal); R45.851 Suicidal ideations; F60.9 Personality disorder, unspecified; F12.90 Cannabis use, unspecified, uncomplicated; Z59.00 Homelessness unspecified; F17.210 Nicotine dependence, cigarettes, uncomplicated; F10.10 Alcohol abuse, uncomplicated; F15.90 Other stimulant use, unspecified, uncomplicated; F90.9 Attention-deficit hyperactivity disorder, unspecified type
CPT/HCPCS: 86705; 86706; 86709; 86803; 87340; 87491; 87591; 87806; 97150; 97165; 99239